=== PATIENT | male | born 1990 | race Caucasian/White ===

== ENCOUNTER 2017-01-14 17:11 | Emergency (ER) | payer OTHER ==
--- NOTE | 2017-01-14 17:58 | ED ---
Upper Extremity HPI <Kam Downing - Last Filed: 01/14/17 18:47> - General Source: patient, RN notes reviewed Mode of arrival: wheelchair Limitations: no limitations - History of Present Illness Place: home <Sridhar Colunga - Last Filed: 01/14/17 19:03> - General Chief Complaint: Extremity Injury, Upper Stated Complaint: POSS DISLOCATION LEFT SHOULDER INJURY FROM FALL Time Seen by Provider: 01/14/17 17:44 - History of Present Illness Initial Comments: 26-year-old male presents emergency Department with chief complaints of left shoulder pain. Patient states he was jacking up a car leaning over and states that he fell on his arm that was extended. Patient is complaining of left shoulder pain is concerned about possible dislocation. Patient has benign past medical history no shoulder problems in the past. Patient states he feels some numbness in his left arm. Denies any head injury no neck pain. (Sridhar Colunga) - Related Data Previous Rx's Medication Instructions Recorded Hydrocodone/Acetaminophen [[place] 1 tab PO Q6HR PRN #15 tab 01/14/17 5-325] Allergies Allergy/AdvReac Type Severity Reaction Status Date / Time No Known Allergies Allergy Verified 01/14/17 18:06 Review of Systems ROS Other: All systems not noted in ROS Statement are negative. <Kam Downing - Last Filed: 01/14/17 18:47> ROS Other: All systems not noted in ROS Statement are negative. <Sridhar Colunga - Last Filed: 01/14/17 19:03> ROS Statement: Those systems with pertinent positive or pertinent negative responses have been documented in the HPI. Past Medical History Past Medical History: No Reported History History of Any Multi-Drug Resistant Organisms: None Reported Past Surgical History: No Surgical Hx Reported Past Psychological History: No Psychological Hx Reported Smoking Status: Never smoker Past Alcohol Use History: Occasional Past Drug Use History: None Reported <Sridhar Colunga - Last Filed: 01/14/17 19:03> General Exam Limitations: no limitations General appearance: alert, in no apparent distress Head exam: Present: atraumatic, normocephalic, normal inspection Eye exam: Present: normal appearance, PERRL, EOMI. Absent: scleral icterus, conjunctival injection, periorbital swelling Neck exam: Present: full ROM. Absent: tenderness Cardiovascular Exam: Present: regular rate, normal rhythm, normal heart sounds. Absent: systolic murmur, diastolic murmur, rubs, gallop, clicks GI/Abdominal exam: Present: soft, normal bowel sounds. Absent: distended, tenderness, guarding, rebound, rigid Extremities exam: Present: other (Left shoulder limited range of motion secondary to pain. Equal bilaterally, there is some tenderness to the left shoulder no obvious deformity no AC joint tenderness) Back exam: Present: full ROM. Absent: tenderness <Sridhar Colunga - Last Filed: 01/14/17 19:03> Procedures - Orthopedic Joint Reduction Joint #1 Consent Obtained: verbal consent Time Out Performed: Yes Side: left Joint Reduction Location: shoulder Analgesia: procedural sedation Shoulder Technique Used (if applicable): traction/counter-traction Post-Reduction Neuro Exam: intact Post-Reduction Vascular Exam: intact Post Reduction X-Ray Obtained: Yes Post Reduction X-Ray Results: reduced Patient Tolerated Procedure: well, no complications - Procedural Sedation Procedural Sedation Start Time: 18:40 Procedural Sedation Stop Time: 19:05 Indications: fracture/dislocation reduction ASA Class: I Preparation: media monitor applied, pulse oximeter, capnometry used, supplemental O2 applied IV Etomidate Dose (mgs): 12 Complications: none Patient Tolerated Procedure: well, no complications <Kam Downing - Last Filed: 01/14/17 18:47> Medical Decision Making <Kam Downing - Last Filed: 01/14/17 18:47> <Sridhar Colunga - Last Filed: 01/14/17 19:03> - Medical Decision Making 25-year-old male present emergency department with chief complaint of left shoulder pain. Patient had dislocation. This was reduced. Patient we discharged with sling and follow-up with orthopedics. Return parameters were discussed. (Sridhar Colunga) Disposition <Kam Downing - Last Filed: 01/14/17 18:47> Time of Disposition: 19:03 <Sridhar Colunga - Last Filed: 01/14/17 19:03> Clinical Impression: Dislocation of left shoulder joint Disposition: HOME SELF-CARE Condition: Stable Instructions: Shoulder Dislocation (ED) Additional Instructions: Please return to the Emergency Department if symptoms worsen or any other concerns. Prescriptions: Hydrocodone/Acetaminophen [[place] 5-325] 1 tab PO Q6HR PRN #15 tab PRN Reason: Pain Referrals: Calvin Brown MD [Primary Care Provider] - 1-2 days Faizan Smyth MD [Medical Doctor] - 1-2 days
[2017-01-14] MEDS ORDERED: ONDANSETRON 4 MG/2 ML VIAL IVP STA (18:04)
[2017-01-14] MEDS ORDERED: HYDROmorphone 1 MG/ML 1 ML SYRINGE IVP STA (18:04)
[2017-01-14] MEDS ORDERED: ETOMIDATE 2 MG/ML 10 ML VIAL IVP STA (18:04)
--- NOTE | 2017-01-14 18:05 | XR ---
EXAMINATION TYPE: XR shoulder complete LT DATE OF EXAM: 01/14/2017 6:01 PM CLINICAL HISTORY: pain COMPARISON: NONE TECHNIQUE: Three views of the left shoulder are obtained. FINDINGS: There is anterior shoulder dislocation of the humerus relative to the glenoid. No fracture is seen at this time. AC joint is intact. The acromioclavicular and glenohumeral joint spaces appear within normal limits. The visualized ribs are intact and unremarkable. IMPRESSION: 1. Anterior dislocation of the left shoulder. ICD 10 NO FRACTURE, INITIAL EVALUATION
--- NOTE | 2017-01-14 19:10 | XR ---
EXAMINATION TYPE: XR shoulder limited LT DATE OF EXAM: 01/14/2017 7:02 PM CLINICAL HISTORY: Post reduction COMPARISON: NONE TECHNIQUE: Single postreduction view left shoulder FINDINGS: There is relocation of the humeral head relative to the glenoid. I do not see evidence for fracture. AC joint is intact. IMPRESSION: Reduction of left shoulder dislocation. ICD 10 NO FRACTURE, INITIAL EVALUATION
[2017-01-14 19:32] VITALS: BP 170/76; PULSE 90; RESP 16; TEMP 98.1
== END 2017-01-14 19:34 | disposition home or self-care (01) ==
LOC: EC 17:11
DX: S43.005A Unspecified dislocation of left shoulder joint, initial encounter (principal); W18.39XA Other fall on same level, initial encounter; X50.9XXA Other and unspecified overexertion or strenuous movements or postures, initial encounter; Y93.89 Activity, other specified
CPT/HCPCS: 73030; 73020; 99283; 96374; 96375; 23650; 99152; 99153; J2405; J1170